=== PATIENT | female | born 1990 | race Caucasian/White ===

== ENCOUNTER 2021-04-07 18:34 | Emergency (ER) | payer OTHER ==
[~2021-04-07] VITALS: Ht 167.6 cm; Wt 68.0 kg
[2021-04-07 18:54] VITALS: BP 128/86
[2021-04-07] MEDS ORDERED: IBUP-1953 PO (20:43)
[2021-04-07] MEDS ORDERED: CYCL10TA9 PO (20:52)
[2021-04-07] MEDS ORDERED: IBUPROFEN 600 MG TABLET PO ONE (21:00)
== END 2021-04-07 20:57 | disposition home or self-care (01) ==
LOC: ER 18:44
DX: S16.1XXA Strain of muscle, fascia and tendon at neck level, initial encounter (principal); S09.8XXA Other specified injuries of head, initial encounter; Z79.899 Other long term (current) drug therapy; V49.49XA Driver injured in collision with other motor vehicles in traffic accident, initial encounter; Y93.89 Activity, other specified; Y92.488 Other paved roadways as the place of occurrence of the external cause; Y99.8 Other external cause status
CPT/HCPCS: 72050-TC